=== PATIENT | female | born 1980 | race Caucasian/White ===

== ENCOUNTER 2024-02-24 13:05 | Outpatient (CLI) | payer BC, SELFPAY | END 2024-02-24 13:06 | disposition home or self-care (01) | LOC: NFLDREF 02-25 16:22 | PROVIDERS: Visit Provider Physician Assistant | DX: N30.01 Acute cystitis with hematuria (principal); B96.89 Other specified bacterial agents as the cause of diseases classified elsewhere | CPT/HCPCS: 87086; 87186 ==

== ENCOUNTER 2024-04-02 13:57 | Emergency (ER) | payer BC, SELFPAY ==
[2024-04-02 14:07] VITALS: BP 167/91; PULSE 91; RESP 16; TEMP 36.1; O2SAT 96; BMI 49.8
--- NOTE | 2024-04-02 14:23 | ED.ABDPAIN ---
HPI - Abdominal Pain General Time Seen by Provider: 14:24 <Brittaney Mirza MD - Last Filed: 04/05/24 08:17> Date Seen: 04/02/24 <Brittaney Mirza MD - Last Filed: 04/05/24 08:17> Chief Complaint: Abdominal Pain <Brittaney Mirza MD - Last Filed: 04/05/24 08:17> Stated Complaint: left side abdominal pian, diarrhea <Brittaney Mirza MD - Last Filed: 04/05/24 08:17> Time Seen by Provider: 04/02/24 14:21 <Brittaney Mirza MD - Last Filed: 04/05/24 08:17> Source: patient and RN notes reviewed <Brittaney Mirza MD - Last Filed: 04/05/24 08:17> Mode of arrival: ambulatory <Brittaney Mirza MD - Last Filed: 04/05/24 08:17> Limitations: no limitations <Brittaney Mirza MD - Last Filed: 04/05/24 08:17> History of Present Illness HPI narrative: With this 43-year-old female is coming with left-sided abdominal pain. This has been worsening but has been intermittent since she was diagnosed in February with UTI. She was in our urgent care on February 23, had urinalysis consistent with UTI, was started on Macrobid. Proceeded to have increasing left flank pain after that initial visit, went back to Urgent Care, was given a dose of Rocephin 1 g IM. She did have E coli which was resistant to ampicillin, cefazolin, ceftazidime, ceftriaxone, intermediate to Unasyn. The E coli was sensitive to cefepime, gentamicin, Levaquin, nitrofurantoin, Zosyn, tobramycin, Bactrim. She states she did get started on a 2nd antibiotic through her primary at [facility]. She does not remember the name of the antibiotics. I did look in our records to find her history with us. She felt chilled today but has not noted fevers. Her appetite is good. She baseline has diarrhea from taking metformin as she is diabetic but notes the diarrhea has increased. She still is noting some urinary discomfort and frequency. She has left sided abdominal pain, radiates in the flank. No nausea or vomiting, appetite is good. She does state on March 27 she had a recheck urinalysis through clinic and it was normal. She had fecal urgency with diarrhea at work this morning. She did note a little blood in her stool about a week ago, only lasted 1 day. She has had no history of C difficile colitis before. Her only abdominal surgery was a laparoscopic ovarian cystectomy that converted to open. <Brittaney Mirza MD - Last Filed: 04/05/24 08:17> Related Data Home Medications: Home Medications ?Medication ?Instructions ?Recorded ?Confirmed aripiprazole 5 mg tablet 5 mg PO DAILY 02/24/24 02/24/24 blood-glucose sensor (FreeStyle #1 ea 02/24/24 02/24/24 Dionisio 3 Sensor device) insulin aspart U-100 100 unit/mL subcut 02/24/24 02/24/24 (3 mL) subcutaneous pen (Novolog FlexPen U-100 Insulin aspart) insulin glargine 100 unit/mL (3 unit subcut 02/24/24 02/24/24 mL) subcutaneous pen (Basaglar KwikPen U-100 Insulin) lorazepam 1 mg tablet 1 mg PO BID PRN anxiety 02/24/24 02/24/24 losartan 50 mg tablet 50 mg PO DAILY 02/24/24 02/24/24 metformin 500 mg tablet,extended 1,000 mg PO BID 02/24/24 02/24/24 release 24 hr metoprolol succinate 100 mg 100 mg PO DAILY 02/24/24 02/24/24 tablet,extended release 24 hr norethindrone (contraceptive) 0.35 0.35 mg PO DAILY 02/24/24 02/24/24 mg tablet pantoprazole 40 mg tablet,delayed 40 mg PO BID 02/24/24 02/24/24 release pen needle, diabetic 31 gauge x #1,200 ea 02/24/24 02/24/2407/29 (UltiCare Pen Needle) pioglitazone 30 mg tablet 30 mg PO DAILY 02/24/24 02/24/24 rosuvastatin 10 mg tablet 10 mg PO QPM 02/24/24 02/24/24 venlafaxine 150 mg 300 mg PO DAILY 02/24/24 02/24/24 capsule,extended release 24 hr <Brittaney Mirza MD - Last Filed: 04/05/24 08:17> Allergies/Adverse Reactions: Allergies Allergy/AdvReac Type Severity Reaction Status Date / Time No Known Drug Allergies Allergy Verified 04/02/24 15:56 <Brittaney Mirza MD - Last Filed: 04/05/24 08:17> Review of Systems Status of ROS Reports: 6 or more systems reviewed and unremarkable except as noted in History and below <Brittaney Mirza MD - Last Filed: 04/05/24 08:17> PFSH PFS Social History: Social History Non-prescribed substance use: denies use <Brittaney Mirza MD - Last Filed: 04/05/24 08:17> Exam Const: Vital Signs, click to edit/add: Vital Signs - 24 hr 04/02/24 14:07 04/02/24 18:10 Temperature 97.0 F L 98.1 F Pulse Rate [Right Pulse Oximeter] 91 84 Respiratory Rate 16 16 Blood Pressure [Ri ght Upper Arm] 167/91 H 139/75 Pulse Oximetry 96 97 Oxygen Delivery Me thod Room Air Room Air This 43-year-old female is lying flat in the bed come is alert, interactive, no apparent distress. Sclera clear, face atraumatic coming able speak in complete sentences. CV regular rate and rhythm, no murmur. Lungs clear. Abdomen was obese but soft, nondistended, not really tender on examination. She does complain of some mild left CVA tenderness. Where her pain is is mid left abdomen down into the left lower quadrant, radiates up into the flank but I do not reproduce any pain at this time. Skin visualized without rash or jaundice. No lower extremity edema. <Brittaney Mirza MD - Last Filed: 04/05/24 08:17> Vital Signs, click to edit/add: Vital Signs - 24 hr 04/02/24 14:07 04/02/24 18:10 Temperature 97.0 F L 98.1 F Pulse Rate [Right Pulse Oximeter] 91 84 Respiratory Rate 16 16 Blood Pressure [Ri ght Upper Arm] 167/91 H 139/75 Pulse Oximetry 96 97 Oxygen Delivery Me thod Room Air Room Air <Nolvia Rudolph MD - Last Filed: 04/09/24 23:54> Documenting provider has reviewed patient's vital signs: yes <Brittaney Mirza MD - Last Filed: 04/05/24 08:17> Course Course ED Course: Patient is having ongoing left-sided abdominal symptoms. Could be underlying urinary pathology, it is always possible there could be underlying kidney stone but would have anticipated she would have been much more ill with recent confirmed urinary tract infection. She could have C difficile colitis complicating 2 antibiotic courses. It could be pyelonephritis from ascending UTI. This could be a different colitis or even diverticulitis presenting atypically. We will obtain a CT with IV contrast. She will get full complement of labs. Will give her some Toradol for some discomfort, she declines any need for nausea control. <Brittaney Mirza MD - Last Filed: 04/05/24 08:17> Reevaluation(s) Time of Reevaluation #1: 16:32 <Nolvia Rudolph MD - Last Filed: 04/09/24 23:54> Reevaluation #1: Dr. Rudolph- I assumed care from Dr. Mason. [facility] paged. Urology is no longer accepting consult from non [facility] sites. I will pass this information on to administration. Message left to speak with hospitalist regarding transfer. Update 1655: Patient accepted by hospitalist, up to 8 hour bed delay anticipated. Will start Levaquin. Update: Patient declined Levaquin, rationale is not justified. Will give Zosyn. Update: Patient transferred without complication. <Nolvia Rudolph MD - Last Filed: 04/09/24 23:54> Vital Signs Vital signs: Initial Vital Signs Temperature 97.0 F L 04/02/24 14:07 Temperature Source Temporal Artery Scan 04/02/24 14:07 Pulse Rate 91 04/02/24 14:07 Pulse Rhythm Regular 04/02/24 14:07 Respiratory Rate 16 04/02/24 14:07 Blood Pressure 167/91 H 04/02/24 14:07 Blood Pressure Mean 116 H 04/02/24 14:07 Blood Pressure Position Sitting 04/02/24 14:07 Pulse Oximetry 96 04/02/24 14:07 Oxygen Delivery Method Room Air 04/02/24 14:07 Vital Signs Temperature 97.0 F L 04/02/24 14:07 Pulse Rate 91 04/02/24 14:07 Respiratory Rate 16 04/02/24 14:07 Blood Pressure 167/91 H 04/02/24 14:07 Pulse Oximetry 96 04/02/24 14:07 Oxygen Delivery Method Room Air 04/02/24 14:07 Temperature 97.9 F 04/02/24 21:23 Pulse Rate 81 04/02/24 21:23 Respiratory Rate 18 04/02/24 21:23 Blood Pressure 134/67 04/02/24 21:23 Pulse Oximetry 96 04/02/24 21:23 Oxygen Delivery Method Room Air 04/02/24 18:10 <Brittaney Mirza MD - Last Filed: 04/05/24 08:17> Initial Vital Signs Temperature 97.0 F L 04/02/24 14:07 Temperature Source Temporal Artery Scan 04/02/24 14:07 Pulse Rate 91 04/02/24 14:07 Pulse Rhythm Regular 04/02/24 14:07 Respiratory Rate 16 04/02/24 14:07 Blood Pressure 167/91 H 04/02/24 14:07 Blood Pressure Mean 116 H 04/02/24 14:07 Blood Pressure Position Sitting 04/02/24 14:07 Pulse Oximetry 96 04/02/24 14:07 Oxygen Delivery Method Room Air 04/02/24 14:07 Vital Signs Temperature 97.0 F L 04/02/24 14:07 Pulse Rate 91 04/02/24 14:07 Respiratory Rate 16 04/02/24 14:07 Blood Pressure 167/91 H 04/02/24 14:07 Pulse Oximetry 96 04/02/24 14:07 Oxygen Delivery Method Room Air 04/02/24 14:07 Temperature 97.9 F 04/02/24 21:23 Pulse Rate 81 04/02/24 21:23 Respiratory Rate 18 04/02/24 21:23 Blood Pressure 134/67 04/02/24 21:23 Pulse Oximetry 96 04/02/24 21:23 Oxygen Delivery Method Room Air 04/02/24 18:10 <Nolvia Rudolph MD - Last Filed: 04/09/24 23:54> Medications Administered Medications: Discontinued Medications Generic Name Dose Route Start Last Admin Trade Name Jose PRN Reason Stop Dose Admin Aripiprazole 5 mg 04/02/24 20:31 04/02/24 21:32 Aripiprazole 10 Mg Tablet PO 04/02/24 20:32 5 mg ONCE ONE Administration Levofloxacin/Dextrose 750 mg in 150 mls @ 100 mls/hr 04/02/24 16:45 04/02/24 18:52 Levofloxacin 750 Mg/150 Ml IVPB 04/02/24 18:14 Not Given ONCE ONE Piperacillin Sod/Tazobactam 100 mls @ 200 mls/hr 04/02/24 18:34 04/02/24 19:44 Sod 4.5 gm/ Sodium Chloride IVPB 04/02/24 18:35 Infused ONCE ONE Infusion Dextrose/Lactated Ringer's 1,000 mls @ 50 mls/hr 04/02/24 20:34 04/02/24 21:36 5 % Dextrose In Lac Ringer's IV 50 mls/hr .Q20H ARISTIDES Administration Insulin Glargine 20 unit 04/02/24 20:33 04/02/24 21:38 Insulin Glargine,Hum.Rec.Anlog 100 Unit/Ml Insuln.Pen SUBCUT 04/02/24 20:34 20 unit ONCE ONE Administration Ketorolac Tromethamine 15 mg 04/02/24 14:47 04/02/24 15:04 Ketorolac 15 Mg/Ml Inj IVP 04/02/24 14:48 15 mg ONCE ONE Administration Omeprazole 40 mg 04/02/24 20:31 04/02/24 21:30 Omeprazole [address] PO 04/02/24 20:32 40 mg ONCE ONE Administration Rosuvastatin Calcium 10 mg 04/02/24 20:31 04/02/24 21:29 Rosuvastatin Calcium 10 Mg Tablet PO 04/02/24 20:32 10 mg DAILY ONE Administration Venlafaxine HCl 300 mg 04/02/24 20:32 04/02/24 21:32 Venlafaxine Er 75 Mg Capsule PO 04/02/24 20:33 300 mg DAILY ONE Administration <Brittaney Mirza MD - Last Filed: 04/05/24 08:17> Discontinued Medications Generic Name Dose Route Start Last Admin Trade Name Jose PRN Reason Stop Dose Admin Aripiprazole 5 mg 04/02/24 20:31 04/02/24 21:32 Aripiprazole 10 Mg Tablet PO 04/02/24 20:32 5 mg ONCE ONE Administration Levofloxacin/Dextrose 750 mg in 150 mls @ 100 mls/hr 04/02/24 16:45 04/02/24 18:52 Levofloxacin 750 Mg/150 Ml IVPB 04/02/24 18:14 Not Given ONCE ONE Piperacillin Sod/Tazobactam 100 mls @ 200 mls/hr 04/02/24 18:34 04/02/24 19:44 Sod 4.5 gm/ Sodium Chloride IVPB 04/02/24 18:35 Infused ONCE ONE Infusion Dextrose/Lactated Ringer's 1,000 mls @ 50 mls/hr 04/02/24 20:34 04/02/24 21:36 5 % Dextrose In Lac Ringer's IV 50 mls/hr .Q20H ARISTIDES Administration Insulin Glargine 20 unit 04/02/24 20:33 04/02/24 21:38 Insulin Glargine,Hum.Rec.Anlog 100 Unit/Ml Insuln.Pen SUBCUT 04/02/24 20:34 20 unit ONCE ONE Administration Ketorolac Tromethamine 15 mg 04/02/24 14:47 04/02/24 15:04 Ketorolac 15 Mg/Ml Inj IVP 04/02/24 14:48 15 mg ONCE ONE Administration Omeprazole 40 mg 04/02/24 20:31 04/02/24 21:30 Omeprazole [address] PO 04/02/24 20:32 40 mg ONCE ONE Administration Rosuvastatin Calcium 10 mg 04/02/24 20:31 04/02/24 21:29 Rosuvastatin Calcium 10 Mg Tablet PO 04/02/24 20:32 10 mg DAILY ONE Administration Venlafaxine HCl 300 mg 04/02/24 20:32 04/02/24 21:32 Venlafaxine Er 75 Mg Capsule PO 04/02/24 20:33 300 mg DAILY ONE Administration <Nolvia Rudolph MD - Last Filed: 04/09/24 23:54> MDM - Abdominal Pain Medical Records Attestation: I reviewed the patient's medical records. <Nolvia Rudolph MD - Last Filed: 04/09/24 23:54> Lab Data Attestation: I reviewed the patient's lab results. <Nolvia Rudolph MD - Last Filed: 04/09/24 23:54> Lab results narrative: Leukocytosis with left shift. CRP mildly elevated urinalysis still suspicious of infection. <Nolvia Rudolph MD - Last Filed: 04/09/24 23:54> Labs: Lab Results 04/02/24 04/02/24 04/02/24 Range/Units 14:47 14:57 15:00 WBC 19.01 H (4.50-11.00) K/uL RBC 4.52 (4.00-5.20) m/uL Hgb 11.6 L (12.0-16.0) gm/dL Hct 37.5 (33.0-51.0) % MCV 83 (80-100) fL MCH 26 (26-34) pg MCHC 31 L (32-36) gm/dL RDW Coeff of [place] 15.0 (11.5-15.5) % Plt Count 516 H (140-440) K/uL Neut % (Auto) 79.1 H (42.0-72.0) % Lymph % (Auto) 13.4 L (20-44) % [place] % (Auto) 5.7 (0.0-11.0) % Eos % (Auto) 1.3 (0.0-7.0) % Baso % (Auto) 0.2 (0.0-3.0) % Neut # (Auto) 15.00 H (1.7-7.0) K/uL Lymph # (Auto) 2.50 (0.90-2.90) K/uL [place] # (Auto) 1.10 H (0.00-0.90) K/UL Eos # (Auto) 0.20 (0.00-0.50) K/uL Baso # (Auto) 0.00 (0.00-0.30) K/uL Abs Immat Gran (auto) 0.10 (0.00-0.30) K/uL Imm/Tot Granulo (auto) 0.3 % Sodium 133 L (135-149) mmol/L Potassium 4.0 (3.6-5.1) mmol/L Chloride 99 (96-114) mmol/L Carbon Dioxide 23 (20-32) mmol/L Anion Gap 11 (7-15) mEq/L BUN 23 (5-24) mg/dL Creatinine 0.7 (0.5-1.5) mg/dL Estimated Creat Clear 89.48 Estimated GFR 110 ml/min Glucose 189 H (60-115) mg/dL Lactate 2.1 H (0.5-1.9) mmol/L Calcium 9.2 (8.4-10.6) mg/dL Total Bilirubin 0.1 (0.1-1.5) mg/dL AST 17 (12-35) U/L ALT 13 (4-35) U/L Alkaline Phosphatase 97 (40-150) U/L C-Reactive Protein 2.1 H (0.5-1.0) mg/dL Total Protein 7.7 (6.0-8.3) g/dL Albumin 4.4 (3.3-5.0) g/dL Urine Color Yellow (Yellow) Urine Appearance Clear (Clear) Urine pH 5.5 (5.0-8.5) Ur Specific [place] >= 1.030 (1.000-1.030) Urine Protein Trace A (Negative) Urine Glucose (UA) Negative (Negative) Urine Ketones Negative (Negative) Urine Blood 1+ A (Negative) Urine Nitrite Positive A (Negative) Urine Bilirubin Negative (Negative) Urine Urobilinogen 0.2 (0.2-1.0) Ur Leukocyte Esterase Trace A (Negative) Urine RBC 2-5 A (0-2) Urine WBC 25-50 A (0-5) Ur Squamous Epith Cells Many A (None-Few) Urine Bacteria Moderate A (None) Coarse Granular Casts Moderate A (None) WBC Casts Few A (None) Urine Mucus Few A (None) Urine HCG, Qual Negative (Negative) POC Creatinine 0.8 (0.6-1.3) mg/dl <Brittaney Mirza MD - Last Filed: 04/05/24 08:17> Lab Results 04/02/24 04/02/24 04/02/24 Range/Units 14:47 14:57 15:00 WBC 19.01 H (4.50-11.00) K/uL RBC 4.52 (4.00-5.20) m/uL Hgb 11.6 L (12.0-16.0) gm/dL Hct 37.5 (33.0-51.0) % MCV 83 (80-100) fL MCH 26 (26-34) pg MCHC 31 L (32-36) gm/dL RDW Coeff of [place] 15.0 (11.5-15.5) % Plt Count 516 H (140-440) K/uL Neut % (Auto) 79.1 H (42.0-72.0) % Lymph % (Auto) 13.4 L (20-44) % [place] % (Auto) 5.7 (0.0-11.0) % Eos % (Auto) 1.3 (0.0-7.0) % Baso % (Auto) 0.2 (0.0-3.0) % Neut # (Auto) 15.00 H (1.7-7.0) K/uL Lymph # (Auto) 2.50 (0.90-2.90) K/uL [place] # (Auto) 1.10 H (0.00-0.90) K/UL Eos # (Auto) 0.20 (0.00-0.50) K/uL Baso # (Auto) 0.00 (0.00-0.30) K/uL Abs Immat Gran (auto) 0.10 (0.00-0.30) K/uL Imm/Tot Granulo (auto) 0.3 % Sodium 133 L (135-149) mmol/L Potassium 4.0 (3.6-5.1) mmol/L Chloride 99 (96-114) mmol/L Carbon Dioxide 23 (20-32) mmol/L Anion Gap 11 (7-15) mEq/L BUN 23 (5-24) mg/dL Creatinine 0.7 (0.5-1.5) mg/dL Estimated Creat Clear 89.48 Estimated GFR 110 ml/min Glucose 189 H (60-115) mg/dL Lactate 2.1 H (0.5-1.9) mmol/L Calcium 9.2 (8.4-10.6) mg/dL Total Bilirubin 0.1 (0.1-1.5) mg/dL AST 17 (12-35) U/L ALT 13 (4-35) U/L Alkaline Phosphatase 97 (40-150) U/L C-Reactive Protein 2.1 H (0.5-1.0) mg/dL Total Protein 7.7 (6.0-8.3) g/dL Albumin 4.4 (3.3-5.0) g/dL Urine Color Yellow (Yellow) Urine Appearance Clear (Clear) Urine pH 5.5 (5.0-8.5) Ur Specific [place] >= 1.030 (1.000-1.030) Urine Protein Trace A (Negative) Urine Glucose (UA) Negative (Negative) Urine Ketones Negative (Negative) Urine Blood 1+ A (Negative) Urine Nitrite Positive A (Negative) Urine Bilirubin Negative (Negative) Urine Urobilinogen 0.2 (0.2-1.0) Ur Leukocyte Esterase Trace A (Negative) Urine RBC 2-5 A (0-2) Urine WBC 25-50 A (0-5) Ur Squamous Epith Cells Many A (None-Few) Urine Bacteria Moderate A (None) Coarse Granular Casts Moderate A (None) WBC Casts Few A (None) Urine Mucus Few A (None) Urine HCG, Qual Negative (Negative) POC Creatinine 0.8 (0.6-1.3) mg/dl <Nolvia Rudolph MD - Last Filed: 04/09/24 23:54> Imaging Data CT scan - abdomen: Attestation: I have reviewed the pertinent imaging results. <Nolvia Rudolph MD - Last Filed: 04/09/24 23:54> My impression: 6 mm left-sided distal ureteral stone with hydronephrosis. <Nolvia Rudolph MD - Last Filed: 04/09/24 23:54> Radiologist's impression: Impression: Left-sided hydronephrosis, hydroureter and delayed nephrogram with demonstration of a 6.1 millimeter calculus in the distal left ureter just above the ureterovesicular junction. Please note that all CT scans at this facility use dose modulation, iterative reconstruction, and/or weight-based dosing when appropriate to reduce radiation dose to as low as reasonably achievable. Dictated by Michoacano Amado MD @ 04/02/2024 4:15:25 PM <Nolvia Rudolph MD - Last Filed: 04/09/24 23:54> Discharge Plan Discharge Clinical Impression: Ureterolithiasis, Pyelonephritis <Brittaney Mirza MD - Last Filed: 04/05/24 08:17> Patient Disposition: Xfer [facility] <Brittaney Mirza MD - Last Filed: 04/05/24 08:17> Condition: Stable <Brittaney Mirza MD - Last Filed: 04/05/24 08:17> Prescriptions: No Action insulin glargine [Basaglar KwikPen U-100 Insulin] 100 unit/mL (3 mL) insulin pen subcut insulin aspart U-100 [Novolog FlexPen U-100 Insulin] 100 unit/mL (3 mL) insulin pen subcut norethindrone (contraceptive) 0.35 mg tablet 0.35 mg PO DAILY (DME) FreeStyle Dionisio 3 Sensor Device See Rx Instructions .ROUTE .MEDSUPPLY Qty: 1 Patient Comments: [NO ORIGINAL SIG] Rx Instructions: As directed (DME) pen needle, diabetic [UltiCare Pen Needle] 31 gauge x 3/16 needle See Rx Instructions .ROUTE .MEDSUPPLY Qty: 1200 Patient Comments: [NO ORIGINAL SIG] Rx Instructions: As directed rosuvastatin 10 mg tablet 10 mg PO QPM aripiprazole 5 mg tablet 5 mg PO DAILY metformin 500 mg tablet extended release 24 hr 1,000 mg PO BID pioglitazone 30 mg tablet 30 mg PO DAILY pantoprazole 40 mg tablet,delayed release (DR/EC) 40 mg PO BID venlafaxine 150 mg capsule,extended release 24hr 300 mg PO DAILY metoprolol succinate 100 mg tablet extended release 24 hr 100 mg PO DAILY losartan 50 mg tablet 50 mg PO DAILY lorazepam 1 mg tablet 1 mg PO BID PRN (Reason: anxiety) <Brittaney Mirza MD - Last Filed: 04/05/24 08:17> Stand Alone Forms: My[facility] Info Instructions <Brittaney Mirza MD - Last Filed: 04/05/24 08:17>
--- NOTE | 2024-04-02 14:32 | CRLHL7_ITS ---
For Patients: As a result of the Century Cures Act, medical imaging exams and procedure reports are released immediately into your electronic medical record. You may view this report before your referring provider. If you have questions, please contact your health care provider. Indication: Left-sided abdominal pain Technique: Volumetric multidetector CT images of the abdomen and pelvis were obtained after the administration of intravenous contrast. 143 cc Isovue 370 low osmolar intravenous contrast Comparison: None available. Findings: The lung bases are clear. The liver is normal in attenuation without intrahepatic biliary ductal dilatation. The portal vein is patent. There is minimal radiopaque sludge within the gallbladder lumen. There is no significant common biliary ductal dilatation or abrupt cut off. The spleen is normal in enhancement and size. The stomach and duodenum are grossly unremarkable. The pancreas is normal in enhancement without significant atrophy. The adrenal glands are unremarkable. There is left-sided hydronephrosis, hydroureter, and delayed nephrogram with demonstration of a 6.1 millimeter calculus in the distal left ureter above the level of the ureterovesicular junction. Additional nonobstructive calculus is seen within the left collecting system. The right kidney is unremarkable. Moderate stool seen within the proximal colon. Otherwise decompressed appearance of the distal colon. The appendix is unremarkable. There is no significant mesenteric, retroperitoneal, or pelvic sidewall lymph nodes. The aorta is nonaneurysmal. There is no significant atherosclerotic disease appreciated. The solid pelvic viscera are grossly unremarkable. There is no free fluid or free air. There is diastasis of the rectus musculature. The lumbar vertebral body heights are grossly maintained in satisfactory alignment without evidence of displaced fracture, lytic or blastic lesion. Impression: Left-sided hydronephrosis, hydroureter and delayed nephrogram with demonstration of a 6.1 millimeter calculus in the distal left ureter just above the ureterovesicular junction. Please note that all CT scans at this facility use dose modulation, iterative reconstruction, and/or weight-based dosing when appropriate to reduce radiation dose to as low as reasonably achievable. Dictated by Michoacano Amado MD @ 04/02/2024 4:15:25 PM (Electronically Signed)
[2024-04-02 14:54] LABS: Appearance Urine Clear (Clear); Bilirubin Urine Negative (Negative); Blood Urine 1+ (Negative); Color Urine Yellow (Yellow); Glucose Urine Negative (Negative); Ketones Urine Negative (Negative); Leukocyte Esterase Urine Trace (Negative); Nitrite Urine Positive (Negative); Protein Urine Trace (Negative); Specific Gravity Urine >= 1.030 (1.000-1.030); Urobilinogen Urine 0.2 (0.2-1.0); pH Urine 5.5 (5.0-8.5)
[2024-04-02] MEDS: KETOROLAC 15 MG/ML inj IVP (15:04)
[2024-04-02 15:05] LABS: Bacteria Urine Moderate; Mucus Urine Few; Squamous Epithelial Cell Urine Many (None-Few); WBC Urine 25-50 (0-5)
[2024-04-02 15:08] LABS: Coarse Granular Casts Urine Moderate; White Blood Cell Casts Urine Few
[2024-04-02 15:09] LABS: Lactate* 2.1 mmol/L (0.5-1.9)
[2024-04-02 15:11] LABS: Basophils Percent Auto 0.2 % (0.0-3.0); Eosinophils Percent Auto 1.3 % (0.0-7.0); Hematocrit 37.5 % (33.0-51.0); Hemoglobin* 11.6 gm/dL (12.0-16.0); Immature Granulocytes Pct Auto 0.3 %; Lymphocytes Percent Auto 13.4 % (20-44); Mean Corpuscular HGB Conc 31 gm/dL (32-36); Mean Corpuscular Hemoglobin 26 pg (26-34); Mean Corpuscular Volume 83 fL (80-100); Monocytes Percent Auto 5.7 % (0.0-11.0); Neutrophils Percent Auto 79.1 % (42.0-72.0); Platelet Count* 516 K/uL (140-440); Red Blood Count 4.52 m/uL (4.00-5.20); White Blood Count* 19.01 K/uL (4.50-11.00)
[2024-04-02 15:11] LABS: Creatinine, Point-of-Care* 0.8 mg/dl (0.6-1.3)
[2024-04-02 15:14] LABS: Slide Review Reflex No
[2024-04-02 15:27] LABS: Albumin* 4.4 g/dL (3.3-5.0); Chloride* 99 mmol/L (96-114); Sodium* 133 mmol/L (135-149)
[2024-04-02 15:30] LABS: Alkaline Phosphatase* 97 U/L (40-150); Anion Gap 11 mEq/L (7-15); Aspartate Amino Transferase* 17 U/L (12-35); Bilirubin Total* 0.1 mg/dL (0.1-1.5); Carbon Dioxide* 23 mmol/L (20-32); Creatinine* 0.7 mg/dL (0.5-1.5); Est. Creatinine Clearance* 89.48; Estimated Glomerular Filt Rate 110 ml/min; Total Protein* 7.7 g/dL (6.0-8.3)
[2024-04-02 15:31] LABS: Alanine Aminotransferase* 13 U/L (4-35); Blood Urea Nitrogen* 23 mg/dL (5-24); Calcium* 9.2 mg/dL (8.4-10.6); Glucose* 189 mg/dL (60-115)
[2024-04-02 15:33] LABS: C Reactive Protein* 2.1 mg/dL (0.5-1.0)
[2024-04-02 15:33] LABS: Ur HCG Qualitative* Negative (Negative)
[2024-04-02 18:10] VITALS: BP 139/75; PULSE 84; RESP 16; TEMP 36.7; O2SAT 97
[2024-04-02] MEDS: PIPERACILLIN/TAZOBACTAM 4.5 GM in 0.9 % SODIUM CHLORIDE Mini-bag 100 ML IVPB (18:50)
[2024-04-02 21:23] VITALS: BP 134/67; PULSE 81; RESP 18; TEMP 36.6; O2SAT 96
[2024-04-02] MEDS: ROSUVASTATIN CALCIUM 10 MG TABLET PO (21:29)
[2024-04-02] MEDS: OMEPRAZOLE 20 MG CAPSULE DR 40 MG PO (21:30)
[2024-04-02] MEDS: VENLAFAXINE ER 75 MG CAPSULE 300 MG PO (21:32)
[2024-04-02] MEDS: ARIPiprazole 10 MG TABLET 5 MG PO (21:32)
[2024-04-02] MEDS: 5 % DEXTROSE IN LAC RINGER'S 1,000 ML 50 ML IV (21:36)
[2024-04-02] MEDS: INSULIN GLARGINE,HUM.REC.ANLOG 100 UNIT/ML INSULN.PEN 20 UNIT SUBCUT (21:38)
== END 2024-04-02 23:31 | disposition short-term general hospital (02) ==
PROVIDERS: Family Medicine; Emergency Provider Family Medicine; PCP Family Medicine
DX: N20.1 Calculus of ureter (principal); N10 Acute pyelonephritis
CPT/HCPCS: 36415; 74177; 80053; 81001; 81025; 82565; 83605; 85025; 86140; 87086; 87186; 87493; 94761; 96365; 96375; 99284; 99285; A9270; J1815; J1885; J2543; Q9967

== ENCOUNTER 2024-04-02 23:30 | Outpatient (CLI) | payer BC, SELFPAY | END 2024-04-02 23:31 | disposition home or self-care (01) | LOC: AMB 04-06 02:07 | PROVIDERS: PCP Family Medicine; Visit Provider Family Medicine | DX: N20.0 Calculus of kidney (principal) | CPT/HCPCS: A0425; A0427 ==

== ENCOUNTER 2024-09-24 04:44 | Emergency (ER) | payer BC, SELFPAY ==
[2024-09-24] VITALS (13 sets, daily range): BP systolic 146–198; BP diastolic 76–94; PULSE 74–89; RESP 18; TEMP 36.8; O2SAT 92–99; BMI 42.9
--- OUTSIDE RECORDS SUMMARY | 2024-09-24 04:47 | XMS_ITS | Data Portability ---
Author Organization [place] [facility], [facility] Address [address] [place] [address] Care Team Providers Care Salad Maker Name Role Phone CATIA CHO Primary Care Provider [phone] Assessment No assessment recorded. Plan of Treatment Reminders Order Date Submit Date Provider Last Modified By Organization Details Last Modified Time Details Appointments None recorded. Lab unlisted lab - litholink 24HR urine panel 2023 024 [employer], [address], [place], [address], 5 10:07:49 Referral None recorded. Procedures None recorded. Surgeries None recorded. Imaging CT, abdomen + pelvis, w/o contrast 2024 025 [email or web address] Not available 5 15:47:25 CT, abdomen + pelvis, w/o contrast 2023 024 [email or web address] Not available 4 15:25:54 Medication Orders None recorded. Patient TargetsNo targets recorded. Patient Instructions Encounter Date Encounter Id Patient Instructions Last Modified By Organization Details Last Modified Time 05/25/2024 [id number] Telephone - 7 minutes [email or web address] Not available 05/25/2024 10:37:53 Reason for Referral None Reported. Results Created Date Observation Date Name Description Value Unit Range Abnormal Flag Note LastModifiedBy Organization Detail LastModifiedTime 05/14/20 24 05/19/2024 LITHO LINK 24HR URINE PANEL cystine, urine, qualitative NEG negati ve Not Available [facility] ([facility]) [address], [place], [address], 05/19/2024 10:07:49 05/14/20 24 05/19/2024 LITHO LINK 24HR URINE PANEL urine volume (preserved) 3230 mL/24 _HR 500-40 00 Not Available [facility] ([facility]) [address] [place], [address], 05/19/2024 10:07:49 05/14/20 24 05/19/2024 LITHO LINK 24HR URINE PANEL calcium oxalate saturation 2.88 6.00-1 0.00 below low normal Not Available [facility] ([facility]) [address] [place], [address], 05/19/2024 10:07:49 05/14/20 24 05/19/2024 LITHO LINK 24HR URINE PANEL calcium, urine 235 mg/24 _HR <200 above high normal Not Available [facility] ([facility]) [address] [place], [address], 05/19/2024 10:07:49 05/14/20 24 05/19/2024 LITHO LINK 24HR URINE PANEL oxalate, urine 27 mg/24 _HR 20-40 Not Available [facility] ([facility]) [address] [place], [address], 05/19/2024 10:07:49 05/14/20 24 05/19/2024 LITHO LINK 24HR URINE PANEL citrate, urine 1256 mg/24 _HR >550 Not Available [facility] ([facility]) [address] [place], [address], 05/19/2024 10:07:49 05/14/20 24 05/19/2024 LITHO LINK 24HR URINE PANEL calcium phosphate saturation 0.44 0.50-2 .00 below low normal Not Available [facility] ([facility]) [address] [place], [address], 05/19/2024 10:07:49 05/14/20 24 05/19/2024 LITHO LINK 24HR URINE PANEL pH, 24 HR, urine 6.381 5.800- 6.200 above high normal Not Available [facility] ([facility]) [address] [place], [address], 05/19/2024 10:07:49 05/14/20 24 05/19/2024 LITHO LINK 24HR URINE PANEL uric acid saturation 0.31 <1.00 Not Available [facility] ([facility]) [address] [place], [address], 05/19/2024 10:07:49 05/14/20 24 05/19/2024 LITHO LINK 24HR URINE PANEL uric acid, urine 1062 mg/24 _HR <750 above high normal Not Available [facility] ([facility]) [address] [place], [address], 05/19/2024 10:07:49 05/14/20 24 05/19/2024 LITHO LINK 24HR URINE PANEL sodium, urine 256 mmol/ 24_HR 50-150 above high normal Not Available [facility] ([facility]) [address] [place], [address], 05/19/2024 10:07:49 05/14/20 24 05/19/2024 LITHO LINK 24HR URINE PANEL potassium, urine 72 mmol/ 24_HR 20-100 Not Available [facility] ([facility]) [address] [place], [address], 05/19/2024 10:07:49 05/14/20 24 05/19/2024 LITHO LINK 24HR URINE PANEL magnesium, urine 83 mg/24 _HR 30-120 Not Available [facility] ([facility]) [address] [place], [address], 05/19/2024 10:07:49 05/14/20 24 05/19/2024 LITHO LINK 24HR URINE PANEL phosphorus, urine 489 mg/24 _HR 600-12 00 below low normal Not Available [facility] ([facility]) [address] [facility] [place], [address], 05/19/2024 10:07:49 05/14/20 24 05/19/2024 LITHO LINK 24HR URINE PANEL ammonium, urine 23 mmol/ 24_HR 15-60 Not Available [facility] ([facility]) [address] [facility] [place], [address], 05/19/2024 10:07:49 05/14/20 24 05/19/2024 LITHO LINK 24HR URINE PANEL chloride, urine 248 mmol/ 24_HR 70-250 Not Available [facility] ([facility]) [address] [facility] [place], [address], 05/19/2024 10:07:49 05/14/20 24 05/19/2024 LITHO LINK 24HR URINE PANEL sulfate, urine 44 mEq/2 4_HR 20-80 Not Available [facility] ([facility]) [address] [facility] [place], [address], 05/19/2024 10:07:49 05/14/20 24 05/19/2024 LITHO LINK 24HR URINE PANEL urea nitrogen, urine 12.96 g/24_ HR 6.00-1 4.00 Not Available [facility] ([facility]) [address] [facility] [place], [address], 05/19/2024 10:07:49 05/14/20 24 05/19/2024 LITHO LINK 24HR URINE PANEL protein catabolic rate 0.8 g/kg/ 24_HR 0.8-1. 4 Not Available [facility] ([facility]) [address] [facility] [place], [address], 05/19/2024 10:07:49 05/14/20 24 05/19/2024 LITHO LINK 24HR URINE PANEL creatinine, urine 1483 mg/24 _HR not applic . Not Available [facility] ([facility]) [address] [facility] [address] [facility] [address], [place], [address], 05/19/2024 10:07:49 05/14/20 24 05/19/2024 LITHO LINK 24HR URINE PANEL creatinine/k g body weight 11.7 mg/24 _HR/k g 8.7-20 .3 Not Available [facility] ([facility]) [address], [place], [address], 05/19/2024 10:07:49 05/14/20 24 05/19/2024 LITHO LINK 24HR URINE PANEL calcium/kg body weight 1.8 mg/24 _HR/k g <4.0 Not Available [facility] ([facility]) [address], [place], [address], 05/19/2024 10:07:49 05/14/20 24 05/19/2024 LITHO LINK 24HR URINE PANEL calcium/crea tinine ratio 158 mg/g_ creat 51-262 Not Available [facility] ([facility]) [address], [place], [address], 05/19/2024 10:07:49 05/14/20 24 05/19/2024 LITHO LINK 24HR URINE PANEL comment NOTE Not Available [facility] ([facility]) [address], [place], [address], 05/19/2024 10:07:49 Result Notes None recorded. Problems Name Problem SNOMED Code Status Onset Date Resolution Date Notes Provider Name and Address Organization Details Recorded Time Acne 87515402 Active 2006 Sundar ortez [facility] 4 14:16:01 Sprain of anterior cruciate ligament of knee 750902588 Active 2011 Sundar ortez [facility] 4 14:16:01 Heartburn 30387446 Active 2014 Sundar ortez [facility] 4 14:16:01 Obsessive-c ompulsive disorder 104734933 [facility] 14:[facility]01 Borderline personality disorder 12038576 Active 2016 [facility] 14:16:01 Generalized anxiety disorder 37359497 [facility] 2006 [facility] 14:16:01 Patient encounter status 725766311 [facility] 14:16:01 Drug therapy finding 892999714 Completed 202102/26/2022 [facility] 14:16:01 Type 2 diabetes mellitus without complicatio n 393287603 Active 2011 [facility] 4 14:16:02 Vitamin D deficiency 55291486 Active 2013 [facility] 4 14:16:02 Chondromala carson of [place] 19437278 Active 2011 [facility] 4 14:16:02 Severe recurrent major depression without psychotic features 72712083 Active 2017 [facility] 4 14:16:02 Acute pyelonephri tis 25223251 Active 2023 [facility] 4 14:16:02 Hypertensiv e disorder 94996164 Active 2016 [facility] 4 14:16:02 Uncontrolle d type 2 diabetes mellitus 636016947 Active 2019 Sundar HernandezrigalYeison Sel[facility] 4 14:16:02 Hyperlipide faye 57673827 Active 2023 Sundar Walters [facility] 4 14:16:02 Irregular periods 63361602 [facility] 14:16:02 Kidney stone 82936613 Active 2023 Sundar Walters [facility] 4 14:16:02 Problem Notes None recorded. Procedures Surgical History Date Name Laterality Status Provider Name and Address Organization Details Recorded Time 4 Cystoscopy with foreign body/stent removal completed Lul Lopez MD [address], [place], [address] 05/01/2024 22:41:40 4 Keflex [facility] 05/01/2024 13:54:19 Imaging Results None recorded. Procedure Notes None recorded. Medical Equipment None Reported. Allergies Allergen ID Allergen Name Allergen Category Reaction Reaction Severity Criticality Documentation Date Start Date Code Code System Note Provider Name and Address Organization Details Recorded Time 012054 No known allergy (situatio n) Not available Not available Not available Not available 05/02/2024 53182 6003 SNOMED Sundar Walters [facility] 4 14:15:52 No known drug allergies Medications Name Sig Start Date Stop Date Status Note LastModified by Organization Details LastModified Time losartan 50 mg tablet TAKE 1 TABLET (50 MG) BY MOUTH ONCE DAILY. active Not Available Not Available No t Available metoprolol succinate ER 100 mg tablet,exte nded release 24 hr TAKE 1 TABLET (100 MG) BY MOUTH ONCE DAILY. active Not Available Not Available No t Available venlafaxine ER 150 mg capsule,ext ended release 24 hr TAKE 2 CAPSULES (300 MG) BY MOUTH ONCE DAILY WITH EVENING MEAL. active Not Available Not Available No t Available ciprofloxac in 500 mg tablet TAKE 1 TABLET (500 MG) BY MOUTH TWO TIMES DAILY BEFORE MEALS FOR 5 DAYS. 05/02 completed Not Available Not Available Not Available sulfamethox azole 800 mg-trimetho prim 160 mg tablet 1 {tbl} twice a day by oral route. 04/12 completed Not Available Not Available Not Available cephalexin 500 mg capsule TAKE 1 CAPSULE BY MOUTH FOUR TIMES DAILY FOR 7 DAYS 05/02 completed Not Available Not Available Not Available pantoprazol e 40 mg tablet,socrates yed release TAKE 1 TABLET (40 MG) BY MOUTH TWO TIMES DAILY BEFORE MEALS. active Not Available Not Available No t Available lorazepam 1 mg tablet 1 mg twice a day by oral route. 2022 active Not Available Not Available Not Avai lable pioglitazon e 30 mg tablet TAKE 1 TABLET (30 MG) BY MOUTH ONCE DAILY. active Not Available Not Available No t Available norethindro ne (contracept jorge alberto) 0.35 mg tablet TAKE 1 TABLET (0.35 MG) BY MOUTH ONCE DAILY. active Not Available Not Available No t Available metformin ER 500 mg tablet,exte nded release 24 hr TAKE FOUR TABLETS (2,000 MG) BY MOUTH ONCE DAILY WITH EVENING MEAL. active Not Available Not Available No t Available insulin lispro (U-100) 100 unit/mL subcutaneou s pen 5 units 3 times a day by sub-q route. 04/03 completed Not Available Not Available Not Available Novolog FlexPen U-100 Insulin aspart 100 unit/mL (3 mL) subcutaneou s INJECT 8 UNITS SUBCUTANE OUS WITH BREAKFAST /LUNCH MEALS, 12 UNITS IN EVENING. active Not Available Not Available No t Available aripiprazol e 5 mg tablet TAKE 1 TABLET (5 MG) BY MOUTH ONCE DAILY. active Not Available Not Available No t Available rosuvastati n 10 mg tablet TAKE 1 TABLET (10 MG) BY MOUTH AT BEDTIME. active Not Available Not Available No t Available nitrofurant oin monohydrate /macrocryst als 100 mg capsule TAKE 1 CAPSULE BY MOUTH EVERY 12 HOURS, MUST TAKE WITH A MEAL/FOOD . 05/02 completed Not Available Not Available Not Available Jardiance 10 mg tablet TAKE 1 TABLET (10 MG) BY MOUTH ONCE DAILY. 05/02 completed Not Available Not Available Not Available Basaglar KwikPen U-100 Insulin 100 unit/mL (3 mL) subcutaneou s INJECT 50 UNITS SUBCUTANE OUS TWO TIMES DAILY. PRODUCT DESIRED: CHRISTINAAGLREINALDO MARINELLI active Not Available Not Available No t Available UltiCare Pen Needle 31 gauge x 3/16 REMOVE THE 2 COVERS ON THE INSULIN PEN NEEDLE BEFORE ADMINISTE RING INSULIN DOSE. 4 TIMES DAILY 05/02 completed Not Available Not Available Not Available Dexcom G6 Transmitter device TO BE USED TO READ BLOOD SUGARS, FOLLOW MANUFACTU RER DIRECTION S. 05/02 completed Not Available Not Available Not Available FreeStyle Dionisio 3 Sensor device WEAR EACH FOR 14 DAYS 05/02 completed Not Available Not Available Not Available FreeStyle Dionisio 3 [place] TO BE USED TO READ BLOOD SUGARS FOLLOW MANUFACTU RER DIRECTION S. 05/02 completed Not Available Not Available Not Available Vitals Date Recorded Body height Body mass index (BMI) Body weight Provider Name and Address Organization Details Last Updated DateTime 05/02/2024 162.56 cm 48.1 kg/m2 722776.86 g Sundar lund [facility] 05/02/2024 14:21:45 Date Recorded Body height Body mass index (BMI) Body weight Provider Name and Address Organization Details Last Updated DateTime 05/25/2024 162.56 cm 48.1 kg/m2 338020.86 g Catherine Murdock [facility] 05/25/2024 09:55:41 Social History Question Answer Notes LastModified by Organizat ion Details LastModified Time Tobacco Smoking Status Never Smoker Sundar ortez [facility] 05/02/2024 14:24:13 What Is Your Level Of Caffeine Consumption? Moderate Information not available 05/02/2024 Which Illicit Or Recreational Drugs Have You Used? Ocassional Marijuana Information not available 05/02/2024 What Was The Date Of Your Most Recent Tobacco Screening? 05/25/2024 [email or web address] Information not available 05/25/2024 Have You Ever Been Counseled For Unhealthy Alcohol Use? No Information not available 05/02/2024 Has Tobacco Cessation Counseling Been Provided? No [email or web address] Information not available 05/25/2024 How Many Days In The Past Year Have You Consumed 4 Or More Drinks? 0 Information not available 05/02/2024 Sex: Unknown Functional Status Question Answer Note LastModified by Organizat ion Details LastModified Time Do you use any illicit or recreational drugs? Yes Information not available 05/02/2024 Do you or have you ever used any other forms of tobacco or nicotine? No Information not available 05/02/2024 What is your level of alcohol consumption? Occasional Information not available 05/02/2024 Mental Status None recorded. Family History Relationship Description Onset Age of this Age Resolved Age Notes LastModified by Organization Details LastModified Time Father No current problems or disability [email or web address] Not available 05/25 09:55:55 Mother No current problems or disability [email or web address] Not available 05/25 09:55:55 Medical History Condition Response Diabetes Y Bleeding Disorder N High Blood Pressure Y Kidney Stones Y High Cholesterol Y Heart Disease N Cancer N Lung Disease N Gynecological HistoryNo gynecological history recorded. Obstetrics History GPAL:G 0 P 0 0 0 0 Immunizations Vaccine Type Date Status Note Provider Nam e and Address Organization Details Recorded Time MMR 2 completed Miletzi Hannon-Alexandria ro null, [facility] 05/02/2024 14:21:50 COVID-19, mRNA, LNP-S, PF, 30 mcg/0.3 mL dose 1 completed Miletzi Hannon-Mari ro null, [facility] 05/02/2024 14:21:50 COVID-19, mRNA, LNP-S, PF, 30 mcg/0.3 mL dose 1 completed Miletzi Hannon-Mari ro null, [facility] 05/02/2024 14:21:50 COVID-19, mRNA, LNP-S, PF, 30 mcg/0.3 mL dose 1 completed Miletzi Hannon-Mari ro null, [facility] 05/02/2024 14:21:50 COVID-19, mRNA, LNP-S, bivalent, PF, 30 mcg/0.3 mL dose 2 completed Miletzi Hannon-Alexandria ro null, [facility] 05/02/2024 14:21:50 COVID-19, mRNA, LNP-S, PF, 50 mcg/0.5 mL 4 completed Miletzi Hannon-Alexandria ro null, [facility] 05/02/2024 14:16:09 COVID-19, mRNA, LNP-S, PF, 50 mcg/0.5 mL 3 completed [facility] 05/02/[facility] 14:16:09 Tdap 8 completed Miletzi Hannon-Alexandria ro null, [facility] 05/02/2024 14:16:09 Tdap 8 completed Miletzi Hannon-Alexandria ro null, [facility] 05/02/2024 14:21:50 polio, unspecified formulation 3 completed Miletzi Hannon[facility]Alexandria ro null, [facility] 05/02/2024 14:16:09 polio, unspecified formulation 6 completed Miletzi Hannon[facility]Alexandria ro null, [facility] 05/02/2024 14:16:09 polio, unspecified formulation 1 completed Mile[facility] H[facility]Mari ro null, [facility] 05/02/2024 14:16:09 Influenza, split virus, trivalent, PF 4 completed Miletzi Hannon-Mari ro null, [facility] 05/02/2024 14:21:50 Td (adult), 2 Lf tetanus toxoid, preservative free, adsorbed 8 completed Miletzi Hannon-Alexandria ro null, [facility] 05/02/2024 14:16:09 Td (adult), 2 Lf tetanus toxoid, preservative free, adsorbed 8 completed Miletzi Hannon-Alexandria ro null, [facility] 05/02/2024 14:16:09 Hep B, adolescent or pediatric 0 completed Miletzi Hannon-Alexandria ro null, [facility] 05/02/2024 14:16:09 Hep B, adolescent or pediatric 9 completed Miletzi Hannon-Mari ro null, [facility] 05/02/2024 14:16:09 Hep B, adolescent or pediatric 9 completed Miletzi Hannon-Mari ro null, [facility] 05/02/2024 14:16:09 DTaP 3 completed Miletzi Hannon-Mari ro null, [facility] 05/02/2024 14:16:09 DTaP 2 completed Miletzi Hannon-Alexandria ro null, [facility] 05/02/2024 14:16:09 DTaP 6 completed Miletzi Hannon-Mari ro null, [facility] 05/02/2024 14:16:09 DTaP 1 completed Miletzi Hannon-Mari ro null, [facility] 05/02/2024 14:16:09 Past Encounters Encounter ID Performer Location Encounter Start Date Encounter Closed Date Diagnosis/Indication Diagnosis SNOMED-CT Code Diagnosis ICD10 Code Diagnosis Note [id number] MD ODALYS Santos_Kaylah [address] [place] [address] 05/02/2024 14:12:20 05/03/2024 15:25:54 Kidney stone 74588347 N20.0 1. Left kidney stones- CT scan (04/02/24) - Left - 2 mm stone (upper pole) - 2 mm & 1 mm stones (lower pole) - 6x3 mm stone (distal ureter) - Right - no stones- s/p Left ureterosco py with laser lithotrips y and stent - (04/27/24) - stone - pending- encourage fluid and Citrate intake- check 24 Hr urine study - assess risk factors for stone formation- Follow-up in [address] scan (stone tech) - reassess stone burden [id number] MD ODALYS Santos_Edinpreet [address] [place] [address] 05/25/2024 09:55:07 05/29/2024 10:26:10 Kidney stone 47190711 N20.0 1. Left kidney stones- CT scan (04/02/24) - Left - 2 mm stone (upper pole) - 2 mm & 1 mm stones (lower pole) - 6x3 mm stone (distal ureter) - Right - no stones- s/p Left ureterosco py with laser lithotrips y and stent - (04/27/24) - stone - 70% CaOx monohydrat e and 30% CaOx dihydrate- reviewed 24 Hr urine (05/14/24) :- high Calcium (235 mg) - avoid Calcium supplement s- high pH (6.4) -- high Uric acid (1062 mg) - recommend minimizing protein intake (< 8 ounces of meat per day)- high Sodium (256 mg) - recommend Low Sodium diet (< 3200 mg / day- Follow-up in [address] scan (stone tech) - reassess stone burden Health Concerns Section Related Observation LastModified by Organization Detai ls LastModified Time None Recorded Concern Status LastModified by Organization Details LastModified Time None Recorded Advance Directives Directive None Recorded Payers Insurance Date Sequence Insurance Name Policy Number Policy Samuel Covered Member ID Samuel Member ID Guarantor Name 05/24/2024 1 [id number] Liza Carter [id number] Liza Carter Notes Date Note Type Note Provider Name and Address Organization Details Recorded Time 05/02/2024 text/html 43 yo female wit h history of HTN, DM, depression, OCD, and recently diagnosed with a UTI. A CT scan (04/02/24) showed 2 and 1 mm stones in lower pole of the left kidney and a 6 x 3 mm stone in the distal left ureter -- no stones in the right kidney - Cystoscopy, Left ureteroscopy with laser lithotripsy, and stent exchange - (04/27/24) - stone - pending 05/02/24 - She presents for Left ureteral stent removal. She reports moderate bladder irritation. CT scan (04/02/24) - Left - 2 mm stone (upper pole) - 2 mm & 1 mm stones (lower pole) - 6x3 mm stone (distal ureter) - Right - no stones Lul Lopez MD [address], [place], [address], [facility] 05/02/2024 15:22:41 05/25/2024 text/html 43 yo female wit h history of HTN, DM, depression, OCD, and recently diagnosed with a UTI. A CT scan (04/02/24) showed 2 and 1 mm stones in lower pole of the left kidney and a 6 x 3 mm stone in the distal left ureter -- no stones in the right kidney - s/p - Cystoscopy, Left ureteroscopy with laser lithotripsy, and stent exchange - (04/27/24) - stone - 70% CaOx monohydrate - 30% CaOx dihydrate 05/02/24 - She presents for Left ureteral stent removal. She reports moderate bladder irritation. 05/25/24 - She presents for follow-up on kidney stones and 24 Hr Urine results. She denies abdominal or flank pain. CT scan (04/02/24) - Left - 2 mm stone (upper pole) - 2 mm & 1 mm stones (lower pole) - 6x3 mm stone (distal ureter) - Right - no stones 24 Hr urine (05/14/24) - high Calcium (235 mg) - high pH (6.4) - high Uric acid (1062 mg) - high Sodium (256 mg)- normal - UO (3.2 L) - Oxalate (27 mg) - Citrate (1,256 mg) - Mg (83 mg) - Phos (489 mg) Prior to conducting our telephone visit, the patient was apprised of the risks, benefits and alternatives to telephone visits including but not limited to poor audio quality, interrupted visits due to technological limitations, delays in medical evaluation and treatment due to deficiencies or failures of equipment, failure of security protocols resulting in a breach of privacy of personal medical information and a lack of access to complete medical records resulting in not fully informed. It was not possible for the patient to sign the privacy regulations, HIPAA release and assignment of benefits forms. The patient was given the opportunity to ask questions about these policies and gave verbal acknowledgement and approval of these policies as well as to hold this meeting by telephone. Lastly, the patient agreed to allowing their medication history to be pulled from a national pharmacy database to facilitate and coordinate their care. Lul Lopez MD [address] [place] [address],[address], [place], [address], [facility] 05/25/2024 10:39:38 OBGyn Episode No OBEpisode recorded.
--- NOTE | 2024-09-24 04:48 | ED.GENADULT ---
HPI - General Adult General Time Seen by Provider: 04:48 Date Seen: 09/24/24 Chief complaint: Flank Pain Stated complaint: left flank pain Time Seen by Provider: 09/24/24 04:45 Source: patient and family Mode of arrival: ambulatory Limitations: no limitations History of Present Illness HPI narrative: 43-year-old female who comes in today with flank pain. Patient has history of kidney stones and thinks this feels similar. Pain started a couple hours ago, constant, nonradiating. Denies urinary symptoms,chronic diarrhea, no known injury, pain is not worse with movement. Related Data Home Medications ?Medication ?Instructions ?Recorded ?Confirmed aripiprazole 5 mg tablet 5 mg PO DAILY 02/24/24 09/24/24 blood-glucose sensor (FreeStyle #1 ea 02/24/24 09/24/24 Dionisio 3 Sensor device) insulin aspart U-100 100 unit/mL 1 sliding scale dose subcut 02/24/24 09/24/24 (3 mL) subcutaneous pen (Novolog DIRECTED FlexPen U-100 Insulin aspart) insulin glargine 100 unit/mL (3 50 unit subcut DIRECTED 02/24/24 09/24/24 mL) subcutaneous pen (Basaglar KwikPen U-100 Insulin) lorazepam 1 mg tablet 1 mg PO BID PRN anxiety 02/24/24 09/24/24 losartan 50 mg tablet 50 mg PO DAILY 02/24/24 09/24/24 metformin 500 mg tablet,extended 1,000 mg PO BID 02/24/24 09/24/24 release 24 hr metoprolol succinate 100 mg 100 mg PO DAILY 02/24/24 09/24/24 tablet,extended release 24 hr norethindrone (contraceptive) 0.35 0.35 mg PO DAILY 02/24/24 09/24/24 mg tablet pantoprazole 40 mg tablet,delayed 40 mg PO BID 02/24/24 09/24/24 release pen needle, diabetic 31 gauge x #1,200 ea 02/24/24 09/24/24/16 (UltiCare Pen Needle) pioglitazone 30 mg tablet 30 mg PO DAILY 02/24/24 09/24/24 rosuvastatin 10 mg tablet 10 mg PO QPM 02/24/24 09/24/24 venlafaxine 150 mg 300 mg PO DAILY 02/24/24 09/24/24 capsule,extended release 24 hr Allergies Allergy/AdvReac Type Severity Reaction Status Date / Time No Known Drug Allergies Allergy Verified 09/24/24 04:56 PFSH [facility] Social History Smoking Status: Never smoker Second hand tobacco smoke exposure: No How often do you have a drink containing alcohol: never AUDIT-C Alcohol total score: 0 Non-prescribed substance use: denies use Exam Narrative: Exam Narrative: General: Well-developed and well-nourished, no acute distress Head: Atraumatic and normocephalic Eyes: Pupils are equal reactive, extraocular motions intact, conjunctiva clear ENT: External nose and ears are normal, posterior pharynx without erythema or exudate Neck: No midline cervical tenderness, full spontaneous range of motion the neck, trachea midline, no adenopathy Heart: Regular rate and rhythm no murmurs or thrills Lungs: Clear to auscultation bilaterally without wheezes or crackles Abdomen: Soft, nontender, nondistended with active bowel sounds, mild left low back tenderness Musculoskeletal: No tenderness, deformity, or edema Neurologic: Awake, alert, and oriented x3, no gross focal neurologic deficits, cranial nerves intact as tested Psych: Mood and affect are appropriate Skin: No rashes Const: Vital Signs, click to edit/add: Vital Signs - 24 hr 09/24/24 04:52 09/24/24 05:00 09/24/24 06:11 Temperature 98.3 F 98.3 F 98.3 F Pulse Rate [Right Pulse Oximeter] 89 Respiratory Rate 18 Blood Pressure [Ri ght Upper Arm] 198/94 H Pulse Oximetry 99 Oxygen Delivery Me thod Room Air 09/24/24 06:11 Temperature Pulse Rate [Right Pulse Oximeter] Respiratory Rate Blood Pressure [Ri ght Upper Arm] Pulse Oximetry 99 Oxygen Delivery Me thod Course Course ED Course: Reviewed prior hospital admission from April 03 which was for nephrolithiasis and pyelonephritis, also subsequent cystoscopy and lithotripsy April 27. Patient with history of a kidney stone who presents today with left flank pain for couple hours. Denies urinary symptoms, nausea, vomiting. On exam here, patient is finally stable, mild left low back tenderness. Did consider musculoskeletal pain, kidney stone. Labs and Toradol ordered along with CT scan. Reevaluation(s) Time of Reevaluation #1: 05:14 Reevaluation #1: Labs in pill interpreted by me with leukocytosis, urine with protein, nitrite positive, 10-25 red cells and 25-50 white blood cells, many bacteria, also moderate squamous cells. Given elevated white blood cell count and leukocyte positive urine, although urine is contaminated, will initiate antibiotics. Prior culture was E coli sensitive to quinolones and Rocephin. Rocephin IV will be started. Time of Reevaluation #2: 05:26 Reevaluation #2: CT abdomen and pelvis and panel interpreted by me with mild left hydronephrosis and hydroureter, 2-3 mm left mid ureteral stone. Will discuss with urology. Time of Reevaluation #3: 05:48 Reevaluation #3: Care discussed with Dr. Tesfaye, hospitalist at [facility] who accepts patient for transfer but does request that I speak with Urology. 6:02 AM Care discussed with Dr. Kern, Urology, no further recommendations at this time and agrees with plan for transfer. Vital Signs Vital signs: Initial Vital Signs Temperature 98.3 F 09/24/24 04:52 Temperature Source Temporal Artery Scan 09/24/24 04:52 Pulse Rate 89 09/24/24 04:52 Respiratory Rate 18 09/24/24 04:52 Blood Pressure 198/94 H 09/24/24 04:52 Blood Pressure Mean 128 H 09/24/24 04:52 Blood Pressure Position Sitting 09/24/24 04:52 Pulse Oximetry 99 09/24/24 04:52 Oxygen Delivery Method Room Air 09/24/24 04:52 Vital Signs Temperature 98.3 F 09/24/24 04:52 Pulse Rate 89 09/24/24 04:52 Respiratory Rate 18 09/24/24 04:52 Blood Pressure 198/94 H 09/24/24 04:52 Pulse Oximetry 99 09/24/24 04:52 Oxygen Delivery Method Room Air 09/24/24 04:52 Temperature 98.3 F 09/24/24 06:11 Pulse Rate 89 09/24/24 04:52 Respiratory Rate 18 09/24/24 04:52 Blood Pressure 198/94 H 09/24/24 04:52 Pulse Oximetry 99 09/24/24 06:11 Oxygen Delivery Method Room Air 09/24/24 04:52 Medications Administered Medications: Discontinued Medications Generic Name Dose Route Start Last Admin Trade Name Jose PRN Reason Stop Dose Admin Ceftriaxone Sodium 1 gm/ 100 mls @ 200 mls/hr 09/24/24 05:16 09/24/24 06:12 Sodium Chloride IVPB 09/24/24 05:17 Infused ONCE ONE Infusion Ketorolac Tromethamine 15 mg 09/24/24 04:58 09/24/24 05:00 Ketorolac 15 Mg/Ml Inj IVP 09/24/24 04:59 15 mg ONCE ONE Administration Medical Decision Making Lab Data Labs: Lab Results 09/24/24 09/24/24 09/24/24 Range/Units 04:45 05:00 05:03 WBC 19.86 H (4.50-11.00) K/uL RBC 4.44 (4.00-5.20) m/uL Hgb 10.9 L (12.0-16.0) gm/dL Hct 36.1 (33.0-51.0) % MCV 81 (80-100) fL MCH 25 L (26-34) pg MCHC 30 L (32-36) gm/dL RDW Coeff of [place] 16.2 H (11.5-15.5) % Plt Count 549 H (140-440) K/uL Neut % (Auto) 73.9 H (42.0-72.0) % Lymph % (Auto) 17.5 L (20-44) % [place] % (Auto) 6.0 (0.0-11.0) % Eos % (Auto) 2.1 (0.0-7.0) % Baso % (Auto) 0.2 (0.0-3.0) % Neut # (Auto) 14.70 H (1.7-7.0) K/uL Lymph # (Auto) 3.50 H (0.90-2.90) K/uL [place] # (Auto) 1.20 H (0.00-0.90) K/UL Eos # (Auto) 0.40 (0.00-0.50) K/uL Baso # (Auto) 0.00 (0.00-0.30) K/uL Abs Immat Gran (auto) 0.10 (0.00-0.30) K/uL Imm/Tot Granulo (auto) 0.3 % Sodium 139 (135-149) mmol/L Potassium 4.2 (3.6-5.1) mmol/L Chloride 101 (96-114) mmol/L Carbon Dioxide 23 (20-32) mmol/L Anion Gap 15 (7-15) mEq/L BUN 20 (5-24) mg/dL Creatinine 0.8 (0.5-1.5) mg/dL Estimated Creat Clear 78.30 Estimated GFR 94 ml/min Glucose 217 H (60-115) mg/dL Calcium 10.0 (8.4-10.6) mg/dL Urine Color Yellow (Yellow) Urine Appearance Cloudy A (Clear) Urine pH 6.0 (5.0-8.5) Ur Specific [place] >= 1.030 (1.000-1.030) Urine Protein 3+ A (Negative) Urine Glucose (UA) Trace A (Negative) Urine Ketones Trace A (Negative) Urine Blood 2+ A (Negative) Urine Nitrite Positive A (Negative) Urine Bilirubin Negative (Negative) Urine Urobilinogen 0.2 (0.2-1.0) Ur Leukocyte Esterase 1+ A (Negative) Urine RBC 10-25 A (0-2) Urine WBC 25-50 A (0-5) Ur Squamous Epith Cells Moderate A (None-Few) Amorphous Sediment Many A (None) Urine Bacteria Many A (None) Urine Mucus Few A (None) Urine HCG, Qual Negative (Negative) Discharge Plan Discharge Clinical Impression: Left ureteral calculus, Pyelonephritis Patient Disposition: Xfer [facility] Prescriptions: No Action insulin glargine [Basaglar KwikPen U-100 Insulin] 100 unit/mL (3 mL) insulin pen 50 unit subcut DIRECTED Rx Instructions: INJECT 50 UNITS SUBCUTANEOUS TWO TIMES DAILY. insulin aspart U-100 [Novolog FlexPen U-100 Insulin] 100 unit/mL (3 mL) insulin pen 1 sliding scale dose subcut DIRECTED Rx Instructions: INJECT 8 UNITS SUBCUTANEOUS WITH BREAKFAST/LUNCH MEALS, 12 UNITS IN EVENING. norethindrone (contraceptive) 0.35 mg tablet 0.35 mg PO DAILY (DME) FreeStyle Dionisio 3 Sensor Device See Rx Instructions .ROUTE .MEDSUPPLY Qty: 1 Patient Comments: [NO ORIGINAL SIG] Rx Instructions: As directed (DME) pen needle, diabetic [UltiCare Pen Needle] 31 gauge x 3/16 needle See Rx Instructions .ROUTE .MEDSUPPLY Qty: 1200 Patient Comments: [NO ORIGINAL SIG] Rx Instructions: As directed rosuvastatin 10 mg tablet 10 mg PO QPM aripiprazole 5 mg tablet 5 mg PO DAILY metformin 500 mg tablet extended release 24 hr 1,000 mg PO BID pioglitazone 30 mg tablet 30 mg PO DAILY pantoprazole 40 mg tablet,delayed release (DR/EC) 40 mg PO BID venlafaxine 150 mg capsule,extended release 24hr 300 mg PO DAILY metoprolol succinate 100 mg tablet extended release 24 hr 100 mg PO DAILY losartan 50 mg tablet 50 mg PO DAILY lorazepam 1 mg tablet 1 mg PO BID PRN (Reason: anxiety) Stand Alone Forms: [employer] Info Instructions
[2024-09-24 04:57] LABS: Appearance Urine Cloudy (Clear); Bilirubin Urine Negative (Negative); Blood Urine 2+ (Negative); Color Urine Yellow (Yellow); Glucose Urine Trace (Negative); Ketones Urine Trace (Negative); Leukocyte Esterase Urine 1+ (Negative); Nitrite Urine Positive (Negative); Protein Urine 3+ (Negative); Specific Gravity Urine >= 1.030 (1.000-1.030); Urobilinogen Urine 0.2 (0.2-1.0)
--- NOTE | 2024-09-24 04:58 | CRLHL7_ITS ---
For Patients: As a result of the 21st Century Cures Act, medical imaging exams and procedure reports are released immediately into your electronic medical record. You may view this report before your referring provider. If you have questions, please contact your health care provider. INDICATION: Left flank pain. History of obstructing left upper urinary tract urolithiasis. COMPARISON: 04/02/2024 TECHNIQUE: CT of the abdomen and pelvis without intravenous contrast. Please note that all CT scans at this facility use dose modulation, iterative reconstruction, and/or weight-based dosing when appropriate to reduce radiation dose to as low as reasonably achievable. FINDINGS: The study is performed without intravenous contrast. This limits the sensitivity of the exam for the detection bowel pathology, focal lesions of the abdominopelvic viscera and vascular pathology including significant vascular stenosis, occlusion and dissection. ABDOMEN Liver: Normal contour and attenuation. No significant focal lesion. No intrahepatic biliary ductal dilatation. Gallbladder: Normal size. No pericholecystic inflammatory changes. Normal common duct caliber. Pancreas: Normal contour and attenuation. No peripancreatic inflammatory changes. No significant focal lesion. Normal main duct caliber. Spleen: Not enlarged. No significant focal lesion. Adrenal Glands: Symmetrical adrenal glands. No significant focal lesion. Kidneys: 3 mm obstructing left lower ureteral stone (series 2; image 114) associated with upstream dilatation of the left upper urinary tract. Additional nonobstructing left nephroliths are noted measuring 4 mm (2; 56) and 5 mm (5; 71). No evidence of urolithiasis involving. Normal bilateral renal attenuation. No significant focal lesion. Gastrointestinal tract: Normal caliber, attenuation and wall thickness of the gastrointestinal tract. No inflammatory changes. Normal small bowel mesentery. Unseen appendix. No sign of acute appendicitis. Vascular: Normal outer wall to outer wall abdominal aortic caliber. Patency and luminal caliber of the abdominopelvic arterial and venous vasculature cannot be assessed on this noncontrast study. Peritoneal Cavity/Retroperitoneum: No ascites. No adenopathy. PELVIS No bladder lesion is identified. No significant incidental findings related to the uterus or uterine adnexa. No significant ascites.Small volume low density pelvic ascites within physiologic limits of normal. No adenopathy. SKELETON AND BODY WALL No acute or significant incidental findings. LOWER THORAX Partially included lower thoracic wall, lungs, pleural spaces and mediastinum are otherwise without significant incidental findings. IMPRESSION: 3 mm obstructing left lower ureteral stone with associated moderate left upstream hydroureteronephrosis. Additional nonobstructing left nephroliths as above. Please note that all CT scans at this facility use dose modulation, iterative reconstruction, and/or weight-based dosing when appropriate to reduce radiation dose to as low as reasonably achievable. Dictated by Karl Yee MD @ 09/24/2024 6:00:38 AM (Electronically Signed)
[2024-09-24] MEDS: KETOROLAC 15 MG/ML inj IVP (05:00)
[2024-09-24 05:02] LABS: Amorphous Sediment Urine Many; Bacteria Urine Many; Mucus Urine Few; Squamous Epithelial Cell Urine Moderate (None-Few); WBC Urine 25-50 (0-5)
[2024-09-24 05:06] LABS: Basophils Percent Auto 0.2 % (0.0-3.0); Eosinophils Percent Auto 2.1 % (0.0-7.0); Hematocrit 36.1 % (33.0-51.0); Hemoglobin* 10.9 gm/dL (12.0-16.0); Immature Granulocytes Pct Auto 0.3 %; Lymphocytes Percent Auto 17.5 % (20-44); Mean Corpuscular HGB Conc 30 gm/dL (32-36); Mean Corpuscular Hemoglobin 25 pg (26-34); Mean Corpuscular Volume 81 fL (80-100); Neutrophils Percent Auto 73.9 % (42.0-72.0); Platelet Count* 549 K/uL (140-440); RDW Coefficient of Variation % 16.2 % (11.5-15.5); Red Blood Count 4.44 m/uL (4.00-5.20); White Blood Count* 19.86 K/uL (4.50-11.00)
[2024-09-24 05:09] LABS: Slide Review Reflex No
[2024-09-24 05:21] LABS: Ur HCG Qualitative* Negative (Negative)
[2024-09-24 05:23] LABS: Chloride* 101 mmol/L (96-114); Sodium* 139 mmol/L (135-149)
[2024-09-24 05:24] LABS: Potassium* 4.2 mmol/L (3.6-5.1)
[2024-09-24] MEDS: cefTRIAXone 1 GM in 0.9 % SODIUM CHLORIDE Mini-bag 100 ML IVPB (05:24)
[2024-09-24 05:26] LABS: Blood Urea Nitrogen* 20 mg/dL (5-24); Creatinine* 0.8 mg/dL (0.5-1.5); Estimated Glomerular Filt Rate 94 ml/min
[2024-09-24 05:27] LABS: Anion Gap 15 mEq/L (7-15); Carbon Dioxide* 23 mmol/L (20-32); Glucose* 217 mg/dL (60-115)
[2024-09-24] MEDS: MORPHINE 4 MG/ML INJ IVP (09:37)
== END 2024-09-24 10:57 | disposition short-term general hospital (02) ==
PROVIDERS: Emergency Provider Family Medicine; PCP Family Medicine
DX: N20.1 Calculus of ureter (principal); N12 Tubulo-interstitial nephritis, not specified as acute or chronic
CPT/HCPCS: 36415; 74176; 80048; 81001; 81025; 84703; 85025; 87086; 94761; 96365; 96375; 99285; J0696; J1885; J2270

== ENCOUNTER 2024-09-24 10:48 | Outpatient (CLI) | payer BC, SELFPAY | END 2024-09-24 10:49 | disposition home or self-care (01) | LOC: AMB 09-26 08:23 | PROVIDERS: PCP Family Medicine; Visit Provider Student in an Organized Health Care Education/Training Program | DX: N20.1 Calculus of ureter (principal); N12 Tubulo-interstitial nephritis, not specified as acute or chronic | CPT/HCPCS: A0425; A0427 ==

== ENCOUNTER 2024-12-05 08:30 | Outpatient (RCR) | payer BC, SELFPAY | END 2025-04-04 23:59 | disposition home or self-care (01) | PROVIDERS: PCP Family Medicine; Visit Provider Family Medicine | DX: N39.46 Mixed incontinence (principal); N20.1 Calculus of ureter; N32.81 Overactive bladder; Z51.89 Encounter for other specified aftercare | CPT/HCPCS: 97110; 97112; 97140; 97163; 97530; 97535 ==